=== PATIENT | female | born 2000 | race Asian ===

== ENCOUNTER 2024-07-21 21:08 | Emergency (ER) | payer SELFPAY ==
[2024-07-21 21:15] VITALS: BP 116/76
[2024-07-22 01:03] LABS: % Basophils 0.8 % (0-2); % Eosinophils 2.8 % (0-6); % Immature Granulocytes 0.3 % (0-0.5); % Lymphocytes 27.7 % (20.5-51.1); % Monocytes 5.6 % (1.7-9.3); % Neutrophils 62.8 % (42.2-75.2); Absolute Basophils 0.1 10^3/uL (0-0.2); Absolute Eosinophils 0.2 10^3/uL (0-0.7); Absolute Lymphocytes 2.2 10^3/uL (1.2-3.4); Absolute Monocytes 0.4 10^3/uL (0.1-0.6); Hematocrit 34.9 % (37.0-47.0); Hemoglobin 11.6 g/dL (12.0-16.0); Mean Corp Hgb Conc. 33.2 g/dL (33.0-37.0); Mean Corpuscular Hgb 28.4 pg (27.0-31.0); Mean Corpuscular Volume 85.3 fL (81.0-99.0); Mean Platelet Volume 9.9 fL (7.4-10.4); Nucleated Red Blood Cells % 0 %; Platelet Count 247 10^3/uL (130-400); Red Blood Cell Count 4.09 10^6/uL (4.20-5.40); Red Cell Dist. Width 13.1 % (11.5-14.5); White Blood Cell Count 7.9 10^3/uL (4.8-10.8)
[2024-07-22 01:12] LABS: HCG, Serum Qualitative Screen Negative
[2024-07-22 01:15] LABS: ALT (SGPT) 38 U/L (0-35); AST (SGOT) 25 U/L (14-36); Albumin 4.8 g/dl (3.5-5.0); Alkaline Phosphatase 65 U/L (38-126); Blood Urea Nitrogen 14 mg/dl (7-17); Calcium 9.7 mg/dl (8.4-10.2); Carbon Dioxide 26 mmol/L (22-30); Chloride 107 mmol/L (98-107); Glucose 93 mg/dl (70-99); Potassium 4.1 mmol/L (3.5-5.1); Sodium 140 mmol/L (135-145); Total Bilirubin 0.3 mg/dl (0.2-1.3); Total Protein 7.1 g/dl (6.3-8.2); eGFR > 60.00
--- NOTE | 2024-07-22 02:08 | ED.GENMED ---
History of Present Illness
General
Chief Complaint: Visual Problem
Source: patient
Exam Limitations: none
Time Seen by Provider: 07/21/24 23:56
Nursing documentation reviewed up to this point in time: agreed with
History of Present Illness
History of Present Illness:
Patient to ED with report of vision changes. Reports spots in her vision bilaerally. SHe states the psych facility where she is receiving care is currently weaning her off trileptal. This started 3 days ago and coinicides with the start of her
symptoms. Brought to ED by facilty staff for evaluation
Past History
Past History
ED Past Medical History: Psychiatric
Review of Systems
Review of Systems
Allergies reviewed?: Yes
All Other Systems: ROS reviewed and negative except as documented in HPI and ROS
Constitutional: Reports no symptoms
EENT: Reports other (bilateral vision changes - spots in vision)
Respiratory: Reports no symptoms
Cardiac: Reports no symptoms
ABD/GI: Reports no symptoms
: Reports no symptoms
Musculoskeletal: Reports no symptoms
Skin: Reports no symptoms
Neurological: Reports no symptoms
Psychiatric: Reports no symptoms
Phy Exam
General Physical Exam
General Presentation: well appearing and no apparent distress
General age: appears stated age
General Skin: warm and dry
General Habitus: normal
General Mental: alert
Eye Exam
Eye Exam: PERRL, EOMI, conjunctiva normal and globe normal
Cardiovascular Exam
Cardiovascular Exam: regular rate/rhythm and no edema
Pulmonary Exam
Pulmonary Exam: lungs clear and no respiratory distress
Gastrointestinal Exam
Gastrointestinal Exam: normal bowel sounds, non tender and soft
Musculoskeletal Exam
Musculoskeletal Exam: full ROM
Skin Exam
Skin Exam: normal color, warm/dry and no rash
Psychiatric Exam
Psychiatric Exam: normal mood/affect
Course
Orders/Labs/Results
Orders:
Orders
07/22/24 00:21
Test Result ONCE
07/22/24 00:55
Complete Blood Count/With Diff Urgent
Comprehensive Metabolic Panel Urgent
Free T4 Urgent
HCG, Serum Qualitative Screen Urgent
TSH Reflex To Free T4 Urgent
Comment: ADD ON
07/22/24 01:22
Add On- LAB Urgent
Tests Added?: TSH reflex free T4
Abnormal Lab Results
07/22/24
00:55
RBC 4.09 L 10^6/uL
(4.20-5.40)
Hgb 11.6 L g/dL
(12.0-16.0)
Hct 34.9 L %
(37.0-47.0)
ALT 38 H U/L
(0-35)
TSH (Reflex) 28.80 H uIU/ml
(0.47-4.68)
07/22/24 00:55
07/22/24 00:55
Vital Signs
Initial and Last Documented VS:
Initial Vital Signs
Temp Pulse Resp BP Pulse Ox
97.6 F 63 16 116/76 100
07/21/24 21:15 07/21/24 21:15 07/21/24 21:15 07/21/24 21:15 07/21/24 21:15
Last Documented Vital Signs
Temp Pulse Resp BP Pulse Ox
97.6 F 63 16 116/76 100
07/21/24 21:15 07/21/24 21:15 07/21/24 21:15 07/21/24 21:15 07/21/24 21:15
*Critical Care Note
Total Time (30-74mins, 75-104mins- exclusive of procedures): Not Applicable
Update Note
Update Note:
Patient to ED with complaint of vision changes x 3 days. Describes spots in vision similar to the TV with no all source analyst. Exam unremarkable Neurologically intact. No occular findings on exam. SHe has a historyo f hypothyroidism. SHe reports a
mata TSH 3 weeks ago and levothyroxine was then increased from 50mcg to 75mcg. Outpatient lab yest reports TSH 13. No free T4. Unknown what TSH was 3 weeks ago. Will repeat tonight, include free T4
ED Attending Note
-
Portions of this chart may have been created with voice recognition software.� Occasional wrong word or��sound alike� substitutions may have occurred due to the inherent limitations of voice recognition software.
Discharge Plan
Departure
Patient Disposition: Psych Facility
Date of Disposition: 07/22/24
Time of Disposition: 03:39
Patient with high blood pressure during this ER visit?: No
Condition: Good
Covid-19: Not Applicable
Discharge Problem:
Changes in vision
Instructions: Hypothyroidism (underactive thyroid)
Referrals:
UNKNOWN - PT DOES,NOT KNOW [Family Provider] -
Romana Serrano MD [Active] - Next open appointment
Activity Restrictions/Additional Instructions:
Please have your TSH rechecked in 6 weeks. Follow up with ophthalmology as discussed.
Interventions
Interventions:
*Risk Screen - Suicide Last Done: 07/21/24 21:15
*General Assessment Last Done: 07/21/24 21:15
*Neglect/Abuse Screening Last Done: 07/21/24 21:15
*ED- Fall Risk Assessment Last Done: 07/21/24 23:48
*ED COVID-19 Vaccine History Last Done: 07/21/24 23:48
*Nursing Disposition Last Done: 07/22/24 03:44
ED- Neurological Assessment Last Done: 07/21/24 23:56
ED-EENT Assessment Last Done: 07/21/24 23:56
ED Swallowing Screen Last Done: 07/21/24 23:56
Discharge Date and Time
Discharge Date/Time: 07/22/24 03:55
Print Language: NEPALI
== END 2024-07-22 03:55 ==
LOC: EMR 21:08
PROVIDERS: Nurse Practitioner; EMERGENCY PHYSICIAN Student in an Organized Health Care Education/Training Program
DX: H53.8 Other visual disturbances (principal)
CPT/HCPCS: 99283; 80053; 84439; 84443; 84703; 85025